=== PATIENT | female | born 1965 | race Caucasian/White ===

== ENCOUNTER 2019-07-25 09:13 | Inpatient (IN) | payer BC ==
--- NOTE | 2019-07-12 17:35 | HP ---
HISTORY AND PHYSICAL: DATE OF ADMISSION/SURGERY: 07/25/19 DATE OF OFFICE VISIT: 07/10/19 SURGEON: Agueda Grossman MD * (DICTATED BY SAMIR LOPEZ) PROCEDURE: Left total knee arthroplasty revision, conversion from a unicompartmental arthroscopy to a total arthroscopy. CHIEF COMPLAINT: Left knee pain. HISTORY OF PRESENT ILLNESS: Ms. Ryan is a 53-year-old female who underwent a left medial unicompartmental arthroplasty approximately 16 months ago. She continued to have pain and has elected to have it converted to a left total knee arthroplasty. PAST MEDICAL HISTORY: Acid reflux and migraines. PAST SURGICAL HISTORY: Partial hysterectomy, left knee partial replacement, lymph node removal right arm. CURRENT MEDICATIONS: 1. Ranitidine. 2. Sumatriptan. ALLERGIES: To DEMEROL. FAMILY HISTORY: Coronary artery disease and cancer. SOCIAL HISTORY: She is a 53-year-old female. She lives with her . She does not smoke. REVIEW OF SYSTEMS: A complete 14-point review of systems was reviewed with the patient. It is all negative and noncontributory. She denies history of DVT, PE , hepatitis, HIV, or anesthesia problems. PHYSICAL EXAMINATION GENERAL: She is well developed, well nourished, in no acute distress. VITAL SIGNS: She stands 5 feet 5 inches tall, weighs 141 pounds. Her blood pressure is 118/54, heart rate is 75. HEENT: Normocephalic, atraumatic. NECK: Supple. No palpable lymph nodes. PULMONARY: Lungs are clear to auscultation bilaterally. CARDIO: Regular rate and rhythm. Strong S1, S2. ABDOMEN: Soft, nontender, nondistended. NEUROLOGICAL: She is alert and oriented x3. MUSCULOSKELETAL: Left lower extremity, skin is intact. There are no open wounds or abrasions. There is a well-healed incision. She has tenderness over the medial tibial plateau, MCL and medial joint line. There is a minimal effusion of the knee. Range of motion is 0 to 130 degrees of flexion. She is able to dorsiflex and plantarflex. 2+ dorsalis pedis pulse and intact sensation. ASSESSMENT AND PLAN: Ms. Ryan is a 53-year-old female, 16 months status post left medial unicompartmental arthroplasty with pain and likely loosening. She has elected to proceed with a revision to a left total knee arthroplasty. The surgery is scheduled for 07/25/[address] Grossman discussed the risks and benefits of the surgery at today's visit and all of her questions were answered. She will follow up with Dr. Grossman 2 weeks after the surgery. SAMIR LOPEZ [id number]/[facility] #: [id number] EFFIE
[~2019-07-25 09:13] MED LIST: Acetaminophen TAB* 325 MG PO ONE; Buffered Lidocaine 1% SYRIN* 1 ML/SYRINGE INTRADERM ONE; Gabapentin CAP(*) 300 MG PO ONE; Lactated Ringers 1000 ML Bag* 1,000 ML IV SCH; Tranexamic Acid 1,000 MG in NS 0.9% 50 ML* (outpatient use) IV SCH; celeCOXIB CAP* 200 MG PO ONE
--- OUTSIDE RECORDS SUMMARY | 2019-07-25 09:17 | XMS REPORT | Continuity of Care Document ---
:1965 External Reference #:[id number] Author Name Agueda Grossman M.D. (transmitted by agent of provider Mayela Palm) Address [address] [place] [address] Care Team Providers Name Role Phone Fanta Quezada DO - Family Medicine Care Team Information Communications Designer [phone] Problems Active Problems Provider Date Other mechanical complication of internal left Agueda Grossman M.D. Onset: 07/2019 knee prosthesis, initial encounter Arthroplasty of knee Agueda Grossman M.D. Onset: 06/02/2019 Social History Type Date Description Comments Sex Unknown ETOH Use Denies alcohol use Tobacco Use Start: Unknown Patient has never smoked Smoking Status Reviewed: 06/02/19 Patient has never smoked Exercise Type/Frequency Exercises sporadically Allergies, Adverse Reactions, Alerts Active Allergies Reaction Severity Comments Date Demerol Hives 06/02/2019 Medications Active Medications SIG Qnty Indications Ordering Provider Date Ranitidine Acid Assistant Customer Service Manager Unknown Immunizations Description No Information Available Vital Signs Date Vital Result Comment 06/02/2019 4:19pm Height 63 inches 5'3" Weight 140.00 lb Heart Rate 95 /min BP Systolic 120 mmHg BP Diastolic 78 mmHg Respiratory Rate 16 /min Pain Level 7 BMI (Body Mass Index) 24.8 kg/m2 Results Description No Information Available Procedures Description No Information Available Medical Devices Description No Information Available Encounters Type Date Location Provider Dx Diagnosis Office Visit 06/02/2019 [facility] Agueda Grossman, M25.562 Pain in left knee 4:00p at [facility] Z96.652 Presence of left artificial knee joint M25.462 Effusion, left knee T84.093A [facility] compl of internal left knee prosthesis, init encntr Assessments Date Code Description Provider 06/02/2019 M25.562 Pain in left knee Agueda Grossman M.D. 06/02/2019 Z96.652 Presence of left artificial knee joint Agueda Grossman M.D. 06/02/2019 M25.462 Effusion, left knee Agueda Grossman M.D. 06/02/2019 T84.093A Other mechanical complication of internal left Agueda Grossman M.D. knee prosthesis, initial encounter Plan of Treatment 06/02/2019 - Agueda Grossman M.D.M25.562 Pain in left kneeNew Xrays:CT Extremity Lower Left Wo, Ordered: 06/02/19Follow up:Follow up: after testing is completed - CT l kneeZ96.652 Presence of left artificial knee neyrbS46.462 Effusion, left kneeT84.093A Other mechanical complication of internal left knee prosthesis, initial encounter Functional Status Description No Information Available Mental Status Description No Information Available Referrals Description No Information Available
[2019-07-25] MEDS ORDERED: ceFAZolin 2 GM in NS PREMIX(*) 2 GM/100 ML BAG IVPB ONE (09:43)
[2019-07-25] MEDS ORDERED: Buffered Lidocaine 1% SYRIN* 1 ML/SYRINGE INTRADERM ONE (09:43)
[2019-07-25] MEDS ORDERED: Lidocaine 2% PF * 5 ML VIAL ONE ×2 (10:28→10:29)
[2019-07-25] MEDS ORDERED: ROPIVACAINE 5 MG/ML 30 ML BTL (0.5%) ONE ×2 (10:29→12:24)
[2019-07-25] MEDS ORDERED: Midazolam* 1 MG/ML 2 ML VIAL (2 MG) ONE ×5 (10:29→16:35)
[2019-07-25] MEDS ORDERED: Ondansetron INJ* 2 MG/ML VIAL ONE ×2 (10:45→16:52)
[2019-07-25] MEDS ORDERED: Ketorolac INJ* 30 MG/ML 1 ML VIAL ONE ×2 (10:45→16:52)
[2019-07-25] MEDS ORDERED: Bupivacaine 0.5% SDV PF* 30ML VIAL ONE (13:05)
[2019-07-25] MEDS ORDERED: fentaNYL* 50 MCG/ML 2 ML VIAL (100 MCG VIAL) ONE (14:25)
[2019-07-25] MEDS ORDERED: Propofol* 10 MG/ML 20 ML BTL ONE ×2 (14:44→16:36)
[2019-07-25] MEDS ORDERED: KETAMINE HCL* 50 MG/ML 10 ML VIAL ONE (14:44)
[2019-07-25] MEDS ORDERED: Chloroprocaine 3%* 20 ML VIAL ONE ×2 (14:52→15:29)
[2019-07-25] MEDS ORDERED: EPHEDrine (Pressors)* 50 MG/ML VIAL ONE (15:29)
[2019-07-25] MEDS ORDERED: Bupivacaine 0.5%* 50 ML MDV VIAL ONE (15:57)
[2019-07-25] MEDS ORDERED: Polyethylene Glycol 3350* 17 GM PACKET PO PRN (16:40)
[2019-07-25] MEDS ORDERED: Ondansetron TAB* 4 MG PO PRN (16:40)
[2019-07-25] MEDS ORDERED: Magnesium Hydroxide LIQ* 30 ML UDC PO PRN (16:40)
[2019-07-25] MEDS ORDERED: Ondansetron INJ* 2 MG/ML VIAL IV PRN (16:40)
[2019-07-25] MEDS ORDERED: traMADol TAB* 50 MG PO PRN (16:40)
[2019-07-25] MEDS ORDERED: diPHENhydraMINE PO* 25 MG PO PRN (16:40)
[2019-07-25] MEDS ORDERED: diPHENhydraMINE IV* 50 MG/ML 1 ml VIAL (BENADRYL) IV PRN (16:40)
[2019-07-25] MEDS ORDERED: Ondansetron ODT TAB* 4 MG PO PRN (16:40)
[2019-07-25] MEDS ORDERED: HYDROmorphone INJ* 0.5 MG/0.5 ML SYRINGE IV SLOW PU PRN (16:43)
[2019-07-25] MEDS ORDERED: Acetaminophen IV 1GM/100ML * 100 ML ONE (16:52)
[2019-07-25] MEDS ORDERED: Bupivacaine 0.5% PF 10 ML SDV VIAL INJ ONE (17:00)
[2019-07-25] MEDS ORDERED: HYDROmorphone INJ1* 1 MG/ML SYRINGE ONE ×2 (17:51→18:34)
[2019-07-25] MEDS ORDERED: Naloxone* 0.4 MG/ML 1 ML VIAL IV PRN (17:51)
[2019-07-25] MEDS: HYDROmorphone INJ1* 1 MG/ML SYRINGE IV PRN ×3 (17:53→18:12)
[2019-07-25] MEDS ORDERED: oxyCODONE TAB* 5 MG TAB ONE (18:24)
[2019-07-25] MEDS: oxyCODONE TAB* 5 MG TAB PO PRN (18:25)
[2019-07-25] MEDS ORDERED: HYDROmorphone INJ1* 1 MG/ML SYRINGE IV PRN (18:32)
[2019-07-25] MEDS ORDERED: Haloperidol INJ IV/IM* 5 MG/ML AMP ONE (19:09)
[2019-07-25] MEDS: ceFAZolin 1 GM ADVAN(*) 1 GM in NS 0.9% 50 ML* 50 ML IVPB SCH (20:12)
[2019-07-25] MEDS: Magnesium Hydroxide LIQ* 30 ML UDC PO SCH (21:05)
[2019-07-25] MEDS: Docusate CAP* 100 MG PO SCH (21:05)
[2019-07-25] MEDS: Lactated Ringers 1000 ML Bag* 1,000 ML IV SCH (22:09)
[2019-07-25] MEDS: Acetaminophen TAB* 325 MG PO SCH (22:10)
[2019-07-25] MEDS: oxyCODONE/Acetamin 5/325 MG* TAB PO PRN (22:59)
[2019-07-26] MEDS: oxyCODONE TAB* 5 MG TAB PO PRN ×4 (02:06→21:30)
--- NOTE | 2019-07-26 04:01 | OP ---
DATE OF OPERATION: 07/25/19 - ROOM #348 DATE OF : 65 SURGEON: Agueda Grossman MD. GLUE SIZE MACHINE OPERATOR: SAMIR Curran. Ms. Torre did help throughout the procedure with preparation of the leg, wound retraction, manipulation of the knee, and wound closure. ANESTHESIOLOGIST: Dr. Washington. ANESTHESIA: Spinal epidural. PRE-OP DIAGNOSIS: Painful left medial compartment uniarthroplasty with periprosthetic loosening. POST-OP DIAGNOSIS: Painful left medial compartment uniarthroplasty with periprosthetic loosening, severe patellofemoral osteoarthritis. OPERATIVE PROCEDURE: Revision left total knee arthroplasty, revision of uniarthroplasty to total knee arthroplasty with revision of the femur and tibial components and patellar arthroplasty. ESTIMATED BLOOD LOSS: 150 cc. HARDWARE USED: This was [employer] total knee arthroplasty hardware. For the femur, a left size 4 narrow posterior stabilized Legion Oxinium femoral component. For the tibia, size 3 Samantha II left tibial component. For the insert, an 11 mm size 3-4 Legion XLPE posterior stabilized articular insert, and for the patella, a 29 mm 7.5 thickness 3-peg all polyethylene Samantha II resurfacing patellar component. COMPLICATIONS: None. SPECIMENS: The hardware from the unicompartment arthroplasty was sent to Pathology. Multiple culture swabs were obtained intraoperatively, although there was no evidence of purulence. TOURNIQUET TIME: 81 minutes. BRIEF HISTORY/INDICATIONS: Ms. Ryan is a 53-year-old female who had in 2018 medial compartment uniarthroplasty at an outside facility. The patient has had severe medial-sided tibial pain since the surgery. Plain films and CT scan indicated some loosening of the tibial base plate. Lab work did not indicate any infection. The patient and I discussed her options. Due to continued severe pain and decreased quality of life, she elected to undergo revision of the unicompartmental arthroplasty to a total knee arthroplasty with revision of all components and patellar resurfacing. Informed consent was obtained from the patient. She understood the risks of surgery included, but were not limited to, bleeding, infection, damage to nearby structures, continued pain, need for further surgery, intraoperative fracture, nerve palsy, hardware failure or loosening, need for further surgery, need for revision knee component such as paul wedge or stemmed augmented hardware. The patient also understood the risks of the anesthesia, stroke, heart attack, and . She wished to proceed. INTRAOPERATIVE FINDINGS: Intraoperatively, the patient was noted to have advanced arthritis in the patellofemoral compartment with complete loss of cartilage along the medial and lateral patellar facet. She had no obvious loosening of the femoral component. The tibial component was visibly loose especially posteriorly. There was no visible fracture of the medial tibial plateau. No obvious purulence. DESCRIPTION OF PROCEDURE: Ms. Ryan was identified in the preanesthesia unit. Her left lower extremity was marked as the correct operative site. Informed consent was signed and placed in the chart. The patient was taken to the operating room and placed under anesthesia. A Macias catheter was placed. Tourniquet was placed on the left thigh. Left lower extremity was prepped and draped in the usual sterile fashion. Preop time-out was made to correctly identify the patient's side and site. Appropriate perioperative antibiotics were given within 1 hour of incision. Tourniquet was inflated until tourniquet time for this procedure was 81 minutes. The patient's prior incision was opened using a 10-blade. Dissection down to the extensor mechanism was made. Next, a new 10-blade was used to make a standard medial parapatellar arthrotomy. The patella was subluxed laterally. Electrocautery was used to subperiosteally elevate soft tissue along the superomedial tibia to the mid sagittal plane. The knee was flexed up. The unicompartment arthroplasty was visible. The polyethylene was easily removed with an osteotome. Next, attention was taken to removing the femoral implant. A small oscillating saw was used to loosen the interface between the cement and the hardware. Both rigid and flexible osteotomes were used as well. A bone tamp was used to carefully remove the femoral component. Minimal bone loss was noted here. Next, attention was turned to removal of the tibial component. There was some loosening along the cement-bone interface posteriorly that was visible. Microsagittal saw was used as well as the flexible and rigid osteotomes. A bone tamp was used to carefully remove the tibial component. Very minimal bone loss was noted with removal of the implant. Attention was turned to preparation of the femur. A drill was used to enter the intramedullary canal. Intramedullary distal femoral cutting guide was pinned on the distal femur. Distal cut was made with an oscillating saw. The external rotation guide was carefully pinned on the distal femur and the distal femur was sized to a size 4. Size 4 multi-cutting jig was pinned on the distal femur. Oscillating saw was used to make the appropriate 4 chamfer cuts. It was noted that there was cleanup cuts made posteriorly along the medial femoral condyle. Therefore, the decision was made that augments would not be necessary. The PCL was completely released. Tibia was subluxed anteriorly. Extramedullary tibial cutting guide was pinned on the proximal tibia. 9 mm of lateral tibial bone was carefully removed. It was noted that if the cutting jig was lower 2 mm this would provide nearly a cleanup cut of the medial tibial plateau. Another 2 mm was carefully removed. This created a flat surface for a primary tibial hardware. Lamina sales record clerk was placed both medially and laterally. Any remaining meniscus was carefully removed. Any remaining cement or fibrous tissue along the medial tibial plateau was removed. The knee was spread out to full extension. The spacer block had good fit. There was good medial and lateral ligamentous balancing. Flexion and extension gaps were well balanced. A size 4 left narrow femoral trial was impacted onto the distal femur and had excellent fit. The box for the posterior stabilized implant was prepared using a reamer and box-cut osteotome. A size 3 tibial tray with an 11 mm insert trial was placed and the knee was taken through a range of motion. The knee had full extension to 130 degrees of flexion with good patellofemoral tracking. The patella was everted. 7 mm of patellar bone and cartilage was carefully removed. The patella was sized to a size 29. The 3 peg holes were drilled to the size 29 guide. A 29 patellar button trial was placed and the knee was taken through a range of motion. There was satisfactory patello-femoral tracking. At this point, all trials were removed. The tibia was subluxed anteriorly and sized to a size 3. Proximal tibia was prepared using a size 3 keel punch. All bony cut surfaces were copiously irrigated with sterile saline and dried. Final implants were cemented into place starting with the tibia, followed by the femur, and last the patella. An 11 mm insert trial was placed while the knee was brought out into full extension. Tourniquet was turned down at 81 minutes. The cement was allowed to slowly cure. The knee was copiously irrigated with sterile saline. Any excess cement was carefully removed from around the implants. Once the cemented had fully cured, the insert trial was removed. Tourniquet had been turned down and electrocautery was used to obtain meticulous hemostasis. Any excess cement was carefully removed from around the implants. Final insert chosen was an 11 mm posterior stabilized articular insert. This was locked into position on the tibial tray without difficulty. Final range of motion was excellent. The knee was copiously irrigated with sterile saline. The extensor mechanism was closed using interrupted #1 Vicryl. The rest of the incision was closed in a layered fashion using 0 and 2-0 Vicryl. The skin was closed using running 3-0 nylon suture. The incision was covered with Xeroform, 4x4s, and Webril. Teddy wrap and cold pack were placed over this. The patient's anesthesia was reversed without difficulty. She was taken to the PACU in stable condition. Intended weightbearing will be weightbearing as tolerated. Intended DVT prophylaxis will be Eliquis. [id number]/[facility] #: [id number] EFFIE
[2019-07-26] MEDS: oxyCODONE/Acetamin 5/325 MG* TAB PO PRN ×6 (06:03→23:28)
[2019-07-26] MEDS: ceFAZolin 1 GM ADVAN(*) 1 GM in NS 0.9% 50 ML* 50 ML IVPB SCH ×2 (06:04→14:45)
[2019-07-26] MEDS: Lactated Ringers 1000 ML Bag* 1,000 ML IV SCH (06:06)
[2019-07-26] MEDS: Acetaminophen TAB* 325 MG PO SCH ×3 (06:06→21:31)
[2019-07-26 07:27] LABS: Hematocrit 32 % (35-47); Hemoglobin 10.8 g/dL (12.0-16.0); Mean Platelet Volume 8.7 fL (7.4-10.4); Platelet Count 206 10^3/uL (150-450)
[2019-07-26 07:50] LABS: BUN/Creatinine Ratio 15.4 (8-20); Calcium 8.3 mg/dL (8.6-10.3); EGFR African American 115.4 (>60); EGFR Non-African American 95.3 (>60); Potassium 3.3 mmol/L (3.5-5.0)
[2019-07-26] MEDS: Cyclobenzaprine TAB* 10 MG PO PRN ×2 (08:31→19:36)
[2019-07-26] MEDS ORDERED: PROCHLORPERAZINE INJ 5 MG/ML 2 ML VIAL ONE (08:55)
[2019-07-26] MEDS ORDERED: PROCHLORPERAZINE INJ 5 MG/ML 2 ML VIAL IV PRN (08:59)
[2019-07-26] MEDS ORDERED: NS 0.9% 500 ML* 500 ML IV ONE (09:00)
[2019-07-26] MEDS: Vitamin THERAPEUTIC TAB PO SCH (10:00)
[2019-07-26] MEDS: Docusate CAP* 100 MG PO SCH ×2 (10:01→20:23)
[2019-07-26] MEDS: Potassium Chlor TAB* 20 MEQ TAB.ER PO SCH ×2 (10:01→20:23)
[2019-07-26] MEDS: Apixaban* 2.5 MG TAB PO SCH ×2 (10:02→20:23)
[2019-07-26] MEDS: Magnesium Hydroxide LIQ* 30 ML UDC PO SCH ×2 (10:03→20:23)
--- NOTE | 2019-07-26 11:04 | PN ---
Progress Note - Progress Note Date of Service: 07/26/19 SOAP: Subjective: []Pt seen and examined at bedside. She feels well without CP, SOB, dizziness, lightheadedness or nausea. She had asymptomatic soft BP this morning, given NS 500 ml bolus with improvement. ALso given 20 meq po q 12 hr KCL tabs for hypokalemia K+ 3.3. Objective: []Gen: NAD, appears well LLE: left knee dressing CDI, thigh soft, df/pf intact, dp 2+, sensation intact to light touch distally Calves supple and nontender without erythema, edema or palpable cords Assessment: []POD 11 sp LTK revision Plan: []WBAT PT/OT eliquis 2.5 mg po BID recheck bmp tomorrow, KCL tab 20 meq po bid Follow BP, nursing to take manual if low then call provider Plan for DC home tomorrow Vital Signs Temp 98.2 F 07/26/19 07:57 Pulse 65 07/26/19 07:57 Resp 18 07/26/19 10:22 BP 98/62 07/26/19 09:39 Pulse Ox 100 07/26/19 07:57 Intake & Output 07/25/19 07/26/19 07/26/19 18:59 06:59 18:59 Intake Total 1100 1400 480 Output Total 1200 800 Balance -100 600 480 Weight 140 lb 6.4 oz Intake: IV Fluids 1100 600 LR 1000 600 NS 100ML, Cefazolin 2G 100 Oral 800 480 Output: Macias 900 650 Emesis 100 150 Estimated Blood Loss 200 Other: # Bowel Movements 0 Laboratory Last Values Hgb 10.8 g/dL (12.0-16.0) L 07/26/19 07:07 Hct 32 % (35-47) L 07/26/19 07:07 Plt Count 206 10^3/uL (150-450) 07/26/19 07:07 MPV 8.7 fL (7.4-10.4) 07/26/19 07:07 Sodium 134 mmol/L (135-145) L 07/26/19 07:07 Potassium 3.3 mmol/L (3.5-5.0) L 07/26/19 07:07 Chloride 102 mmol/L (101-111) 07/26/19 07:07 Carbon Dioxide 28 mmol/L (22-32) 07/26/19 07:07 Anion Gap 4 mmol/L (2-11) 07/26/19 07:07 BUN 10 mg/dL (6-24) 07/26/19 07:07 Creatinine 0.65 mg/dL (0.51-0.95) 07/26/19 07:07 Est GFR ( Amer) 115.4 (>60) 07/26/19 07:07 Est GFR (Non-Af Amer) 95.3 (>60) 07/26/19 07:07 BUN/Creatinine Ratio 15.4 (8-20) 07/26/19 07:07 Glucose 137 mg/dL (70-100) H 07/26/19 07:07 Calcium 8.3 mg/dL (8.6-10.3) L 07/26/19 07:07 Blood Type B Positive 07/25/19 10:12 Antibody Screen Negative 07/25/19 10:12
[2019-07-27] MEDS: oxyCODONE TAB* 5 MG TAB PO PRN ×2 (03:50→09:51)
[2019-07-27 05:16] LABS: Hematocrit 32 % (35-47); Hemoglobin 10.4 g/dL (12.0-16.0); Platelet Count 207 10^3/uL (150-450)
[2019-07-27 05:29] LABS: Calcium 8.3 mg/dL (8.6-10.3); Potassium 4.3 mmol/L (3.5-5.0)
[2019-07-27 05:34] LABS: BUN/Creatinine Ratio 9.3 (8-20); EGFR African American 97.8 (>60); EGFR Non-African American 80.8 (>60)
[2019-07-27] MEDS: oxyCODONE/Acetamin 5/325 MG* TAB PO PRN ×4 (06:05→23:30)
[2019-07-27] MEDS: Acetaminophen TAB* 325 MG PO SCH ×3 (06:06→21:40)
[2019-07-27] MEDS ORDERED: NS 0.9% 250 ML* 250 ML IV ONE (07:56)
[2019-07-27] MEDS ORDERED: Scopolamine 1.5 mg* PATCH TRANSDERM SCH (08:00)
[2019-07-27] MEDS: Potassium Chlor TAB* 20 MEQ TAB.ER PO SCH ×2 (08:30→21:39)
[2019-07-27] MEDS: Magnesium Hydroxide LIQ* 30 ML UDC PO SCH ×2 (08:30→21:40)
[2019-07-27] MEDS: Vitamin THERAPEUTIC TAB PO SCH (08:30)
[2019-07-27] MEDS: Apixaban* 2.5 MG TAB PO SCH ×2 (08:30→21:39)
[2019-07-27] MEDS: Docusate CAP* 100 MG PO SCH ×2 (08:31→21:40)
--- NOTE | 2019-07-27 11:20 | DS ---
Orthopedic Discharge Summary - Discharge Summary Date of Admission:07/25/19 Date of Discharge: 07/27/19 Date of Surgery: 07/25/19 Attending Orthopedic Provider: Dr Grossman Pre-operative Diagnosis: Left knee pain Operative Procedure: left total knee revision Disposition of Patient: home Home care vs Outpatient services: outpatient Condition of Patient: stable Pain medication RX at discharge: percocet 5/325 mg 1-2 tab q 4 hr prn mdd 10 DVT prophylaxis RX at discharge: eliquis 2.5 mg po BID History: NICOLASA YBARRA is a 53 year old F with years of increasingly severe left knee pain. Patient has failed conservative management and has elected to undergo a left total knee replacement revision Hospital Course: NICOLASA was admitted to [facility] on 07/25/19. Patient underwent a left total knee replacement revision without complication followed by a brief recovery in PACU and transfer to the Short Stay Surgical Unit in stable condition. Our physical therapy service also participated in this patients care. Post-op day 1: patient was alert and in no acute distress. Dressing was clean, dry and intact. Operative extremity dorsiflexion and plantarflexion intact, sensation intact to light touch distally, DP2+. BP was low, NS bolus given. K+ low, 20meq bid given. Post-op day two: Pt seen at bedside, felt well without cp, sob, dizziness, nausea. knee pain well controlled. Desires DC home. dressing was changed, incision was clean, dry and intact. Patient was deemed to be medically and orthopedically stable for discharge. Physical therapy goals were met. Encouraged continued IS at home, T 100F. No SOB, calf pain, dysuria, cough or sign of surgical site infection. Vital Signs Temp 100 F 07/27/19 10:52 Pulse 95 07/27/19 10:52 Resp 18 07/27/19 10:52 BP 107/67 07/27/19 10:52 Pulse Ox 93 07/27/19 10:52 Intake & Output 07/26/19 07/27/19 07/27/19 18:59 06:59 18:59 Intake Total 2715 900 730 Output Total 2150 1800 600 Balance 565 -900 130 Intake: IV Fluids 1285 250 NS (0.9%) 1285 250 IVPB 550 ABX - CEFAZOLIN 50 NS (0.9%) 500 Oral 880 900 480 Output: Urine 2150 1800 600 Other: Estimated Void Large # Voids 2 Home Medications Medication Instructions Recorded Confirmed Type Butalbital/Aspirin/Caffeine 1 tab PO DAILY PRN 07/10/19 07/25/19 History [Kuqowm-Dpnltfh-Skwfr 50-325-40] Rabeprazole Sodium [Aciphex] 20 mg PO QAM 07/10/19 07/25/19 History Acetaminophen TAB* [Tylenol TAB*] 975 mg PO Q8HR tab 07/27/19 Rx Apixaban* [Eliquis*] 2.5 mg PO BID #60 tab 07/27/19 Rx Docusate CAP* [Colace Cap*] 100 mg PO BID PRN #60 cap 07/27/19 Rx oxyCODONE/Acetamin 5/325 MG* 2 tab PO Q4H PRN #60 tab MDD 10 07/27/19 Rx [Percocet 5/325 TAB*] Discharge Instructions following Orthopedic Surgery: Activity: * Weight Bearing as tolerated * Continue physical therapy and occupational therapy exercises as shown * you have elected outpatient physical therapy, please start therapy as an outpatient right away. Wound care: * OK to shower on post-op day 3, no bathing, swimming, or submerging wound. * Use gentle soap, pat dry. Cover with gauze, THERON wrap or tape. Call Orthopedic office for: * Increased drainage * Redness * Increased pain * Fever Go to ER with shortness of breath or chest pain. Diet: * Regular diet * Increase fluids and fiber to prevent constipation. * Continue to use stool softeners, call office if no bowel motion within 48 hours. Medications See Home Medication List in your packet for medications that you should take after discharge. DVT Prophylaxis: Eliquis Dosin.5 mg, 1 tab every 12 hours x 30 days. Increases bleeding tendency Pain Control: Percocet 5/325 mg 1 tab for moderate pain and 2 tabs for severe pain by mouth every 4 hours as needed. Maximum of 10 tabs per day. Hold for sedation , wean off as soon as pain allows Please note that Percocet contains Tylenol (acetaminophen). Maximum daily dose of Tylenol is 4000 mg from all sources. Antibiotics are required prior to any dental work. FOLLOW UP: Follow up with Dr. Lloyd] Within [10-14] days, call for appointment Please call our office with any questions or concerns ([phone]) [facility]
[2019-07-27] MEDS ORDERED: NS 0.9% 1000 ML** 1,000 ML IV ONE (14:24)
[2019-07-27] MEDS ORDERED: Piperacillin/Tazobac ADVAN(*) 3.375 GM in NS 0.9% 100 ML* 100 ML IVPB ONE (15:35)
[2019-07-27 15:53] LABS: Urine Appearance Clear; Urine Bilirubin Negative (Negative); Urine Blood 1+ (Negative); Urine Color Yellow; Urine Glucose Negative (Negative); Urine Ketones Negative (Negative); Urine Nitrite Negative (Negative); Urine Protein Negative (Negative); Urine Specific Gravity 1.004 (1.010-1.030); Urine Urobilinogen Negative (Negative)
[2019-07-27 15:55] LABS: Urine Bacteria Absent (Absent); Urine Red Blood Cell Trace(0-2/hpf) (Absent); Urine Squamous Epithelial Cell Present (Absent); Urine White Blood Cell Trace(0-5/hpf) (Absent)
[2019-07-27] MEDS ORDERED: Zosyn per Pharmacy* NOTE FOLLOW UP SCH (16:00)
[2019-07-27 16:25] LABS: ABS Lymphocytes 1.1 10^3/ul (1.0-4.8); ABS Monocytes 0.8 10^3/ul (0-0.8); ABS Neutrophils 5.6 10^3/ul (1.5-7.7); Eosinophil % 0.1 %; Hematocrit 30 % (35-47); Lymphocyte % 14.7 %; Mean Corpuscular HGB Conc 34 g/dL (31-36); Mean Corpuscular Hemoglobin 28 pg (27-31); Mean Corpuscular Volume 83 fL (80-97); Mean Platelet Volume 8.5 fL (7.4-10.4); Platelet Count 212 10^3/uL (150-450); Red Blood Count 3.58 10^6 /uL (3.70-4.87); Red Cell Distribution Width 14 % (10-15); White Blood Count 7.5 10^3/uL (3.5-10.8)
[2019-07-27 16:48] LABS: BUN/Creatinine Ratio 9.1 (8-20); Calcium 8.2 mg/dL (8.6-10.3); EGFR African American 113.4 (>60); EGFR Non-African American 93.7 (>60); Potassium 3.9 mmol/L (3.5-5.0)
[2019-07-27 16:50] LABS: Albumin 3.5 g/dL (3.2-5.2); Albumin/Globulin Ratio 1.8 (1-3); Indirect Bilirubin 0.4 mg/dL (0.3-1.0); Total Bilirubin 0.5 mg/dL (0.2-1.0); Total Protein 5.5 g/dL (6.4-8.9)
--- NOTE | 2019-07-27 17:58 | CONS ---
CC: Dr. Grossman * CONSULTATION REPORT: DATE OF CONSULT: 07/27/19 PROVIDER: Caitlin Palacios NP PHYSICIAN REQUESTING CONSULT: Dr. Agueda Grossman. ATTENDING PHYSICIAN: Dr. Sy Girard. REASON FOR CONSULT: Fever. CHIEF COMPLAINT: Left knee pain. HISTORY OF PRESENT ILLNESS: Ms. Ryan is a 53-year-old female with a past medical history significant for GERD and migraines, who presented to [facility] [place] for an elective left total knee revision with Dr. Grossman. Please see dictated H and P from [facility] for complete details. In brief, the patient had ongoing pain, failed conservative measures; therefore, opted for a left total knee revision with Dr. Grossman. Preoperatively, the patient has had no illnesses and was feeling in her usual state of health. The patient currently denies any chest pain or shortness of breath. She denies any cough or congestion. She denies any chills. She does report a fever. She denies any nausea, vomiting, or abdominal pain. She denies any gross hematuria, dysuria, urinary frequency, urgency, or pain with urination. She denies any rashes, lesions, open sores. Due to her fever, Hospital Medicine was asked to see her in consultation as the patient was meeting SIRS criteria with a fever of 102.4 and her heart rate of 110. PAST MEDICAL HISTORY: Significant for: 1. GERD. 2. Migraines. PAST SURGICAL HISTORY: 1. Left partial knee replacement. 2. Partial hysterectomy. 3. Carpal tunnel bilaterally. HOME MEDICATIONS: Include: 1. Rabeprazole 20 mg p.o. daily. 2. Sumatriptan as needed for migraines. ALLERGIES: DEMEROL. FAMILY HISTORY: Father had a history of coronary artery disease and valvular disease, from a heart attack at age 80. No reported history of diabetes. Brother with unknown type of cancer. Sister with breast cancer. SOCIAL HISTORY: The patient denies smoking, alcohol, or illicit drug use. She lives with her . Surrogate decision maker in the event she is unable to make her own decisions is her , Juan. She is a full code. REVIEW OF SYSTEMS: An 11-point review of systems was completed. All pertinent positives were mentioned in the HPI. PHYSICAL EXAM: General: At this time, Ms. Ryan is alert and oriented, resting in her hospital bed. She is in no acute distress. Vital Signs: Blood pressure 121/77, heart rate 110, respirations 18, O2 saturation 93%, temperature was 102.4. HEENT: Head is atraumatic, normocephalic. Eyes: EOMs are intact. Sclerae anicteric and not pale. Oral mucosa is moist. Neck is supple. Lungs are clear to auscultation bilaterally. No wheezes, rales, or rhonchi. Cardiac: S1, S2. Regular rate and rhythm. No murmurs, rubs, or gallops. Abdomen is soft and nontender. Bowel sounds are present x4. Extremities: She is able to move all 4 extremities. There is no clubbing or cyanosis. She does have a dressing that is dry and intact to her left knee. Neurologic: She is awake, alert, oriented x3. Skin: She does have a dressing that is dry and intact to the left knee. DIAGNOSTIC STUDIES/LAB DATA: Current available laboratory data: Hemoglobin is 10.4, hematocrit is 32. BMP from 07/27/19, sodium was 138, potassium was 4.3, chloride 105, carbon dioxide 31, anion gap is 2, BUN was 7, creatinine 0.75, glucose was 106, calcium was 8.3. IMPRESSION AND PLAN: Ms. Ryan is a 53-year-old female with a past medical history significant for gastroesophageal reflux disease and history of migraines , who presented to [facility] [place] for an elective left total knee revision with Dr. Grossman. Postoperatively on day 2, the patient developed a fever of 102.4 and meeting sepsis, so Hospital Medicine was asked to consult. Our recommendations are as follows: 1. Status post left total knee revision, management per Orthopedics. PT/OT per Orthopedics. Bowel regime per Orthopedics. Pain management per Orthopedics. 2. Fever. At this time, it is unclear her source of fever. The patient does not have any cough or congestion. She denies any rhinorrhea, sore throat. She denies any urinary frequency, urgency or pain with urination. She denies any abdominal pain. The patient will have a CBC, BMP, lactic acid, and blood cultures. We will send urine for UA and culture. She will also have a chest x- ray to rule out any acute pathology or source of infection. The patient can have Tylenol 975 mg every 8 hours as needed for fever. We will cover the patient empirically with Zosyn until blood cultures clear as the patient did have a fever 102.4 and tachycardia with a heart rate of 110. All lab work is currently pending at this time. Further recommendations will be based on laboratory results at the least the patient should be monitored until blood cultures clear. 3. History of gastroesophageal reflux disease. She can continue on AcipHex for her acid reflux. 4. FEN: She can have a regular diet. 5. Code status: She is a full code. 6. DVT prophylaxis: As per Orthopedics. TIME SPENT: Time spent on this consultation was 45 minutes, greater than half that time was spent at the bedside reviewing events leading thus far to her hospitalization, performing physical exam, and reviewing my plan of care. I have discussed this with my attending, Dr. Sy Girard, he is in agreement with my plan. CAITLIN PALACIOS, HAT CUTTER [id number]/CPS #: [id number] EFFIE
[2019-07-27] MEDS: ZOSYN 3.375 GM Q8H per EXTENDED INFUSION IVPB SCH ×2 (21:40)
[2019-07-28] MEDS: oxyCODONE/Acetamin 5/325 MG* TAB PO PRN ×3 (04:56→13:07)
[2019-07-28] MEDS: ZOSYN 3.375 GM Q8H per EXTENDED INFUSION IVPB SCH ×4 (04:57→13:02)
[2019-07-28] MEDS: Acetaminophen TAB* 325 MG PO SCH ×2 (05:00→13:09)
[2019-07-28 05:34] LABS: Hematocrit 30 % (35-47); Hemoglobin 9.9 g/dL (12.0-16.0); Mean Platelet Volume 8.9 fL (7.4-10.4); Platelet Count 209 10^3/uL (150-450)
[2019-07-28] MEDS: Potassium Chlor TAB* 20 MEQ TAB.ER PO SCH (08:47)
[2019-07-28] MEDS: Magnesium Hydroxide LIQ* 30 ML UDC PO SCH (08:47)
[2019-07-28] MEDS: Vitamin THERAPEUTIC TAB PO SCH (08:47)
[2019-07-28] MEDS: Apixaban* 2.5 MG TAB PO SCH (08:47)
[2019-07-28] MEDS: Docusate CAP* 100 MG PO SCH (08:47)
[2019-07-28 11:52] VITALS: BP 112/68
[2019-07-30] MEDS ORDERED: Scopolamine PATCH Remove* 1 NOTE MISC PATCH OFF ONE (08:00)
== END 2019-07-28 14:35 | disposition home or self-care (01) | DRG 302 ==
LOC: AA 09:13 → SSU 16:40
PROVIDERS: ADMIT Orthopaedic Surgery Adult Reconstructive Orthopaedic Surgery; ATTEND Orthopaedic Surgery Adult Reconstructive Orthopaedic Surgery
PROC: 0SPD0LZ Removal of Medial Unicondylar Synthetic Substitute from Left Knee Joint, Open Approach (ICD-10-PCS; 2019-07-25)
PROC: 0SRD069 Replacement of Left Knee Joint with Oxidized Zirconium on Polyethylene Synthetic Substitute, Cemented, Open Approach (ICD-10-PCS; principal; 2019-07-25 14:30)
DX: T84.84XA Pain due to internal orthopedic prosthetic devices, implants and grafts, initial encounter (principal); A41.9 Sepsis, unspecified organism; K21.9 Gastro-esophageal reflux disease without esophagitis; G43.909 Migraine, unspecified, not intractable, without status migrainosus; Z96.652 Presence of left artificial knee joint; M41.9 Scoliosis, unspecified; M50.20 Other cervical disc displacement, unspecified cervical region; Y79.2 Prosthetic and other implants, materials and accessory orthopedic devices associated with adverse incidents; T84.033A Mechanical loosening of internal left knee prosthetic joint, initial encounter; E87.6 Hypokalemia; Z90.711 Acquired absence of uterus with remaining cervical stump; Y92.9 Unspecified place or not applicable; Z88.6 Allergy status to analgesic agent; Z90.710 Acquired absence of both cervix and uterus
CPT/HCPCS: 36415; 71046; 76000; 80048; 80076; 81003; 81015; 83605; 85014; 85018; 85025; 85049; 86850; 86900; 86901; 87040; 87070; 87073; 87086; 87205; 88300; 88305; 88311; 93005; A9270-GY; C1776; J0690; J0780; J1170; J1630; J1885; J2250; J2400; J2405; J2543; J2704; J2795; J3010; J3490